=== PATIENT | female | born 1985 | race Caucasian/White ===

== ENCOUNTER 2022-03-07 18:23 | Outpatient (CLI) | payer OTHER, SELFPAY ==
[2022-03-07 21:01] LABS: Cholesterol* 197 mg/dL (90-199); Glucose* 80 mg/dL (60-115)
[2022-03-07 21:02] LABS: HDL Cholesterol* 68 mg/dL (>=50); LDL Cholesterol Calculated 108 mg/dL (<100); Triglycerides* 104 mg/dL (40-149)
[2022-03-07 21:20] LABS: Vitamin D 25 Hydroxy* 26 ng/mL (30-80)
== END 2022-03-07 18:24 | disposition home or self-care (01) ==
PROVIDERS: Visit Provider Registered Nurse
DX: Z01.419 Encounter for gynecological examination (general) (routine) without abnormal findings (principal); R53.83 Other fatigue; Z13.1 Encounter for screening for diabetes mellitus; Z13.6 Encounter for screening for cardiovascular disorders; Z13.21 Encounter for screening for nutritional disorder
CPT/HCPCS: 80061; 82306; 82947; 84443

== ENCOUNTER 2022-07-26 08:10 | Outpatient (CLI) | payer OTHER, SELFPAY | END 2022-07-26 08:11 | disposition home or self-care (01) | PROVIDERS: Visit Provider Registered Nurse | DX: E55.9 Vitamin D deficiency, unspecified (principal) | CPT/HCPCS: 82306 ==

== ENCOUNTER 2022-10-10 16:50 | Outpatient (CLI) | payer OTHER, SELFPAY ==
--- NOTE | 2022-10-10 17:00 | CRLHL7_ITS ---
For Patients: As a result of the Century Cures Act, medical imaging exams and procedure reports are released immediately into your electronic medical record. You may view this report before your referring provider. If you have questions, please contact your health care provider. INDICATION: Menorrhagia. TECHNIQUE: Transabdominal and transvaginal pelvic ultrasound. FINDINGS: The uterus measures 9.8 x 4.0 x 5.1 cm. The endometrial stripe measures 9 mm transvaginally. Few small cervical nabothian cysts. Normal-sized ovaries without torsion or mass. Small ovarian follicles. The right ovary measures 3.8 x 2.8 x 3.3 cm. The left ovary measures 3.9 x 2.2 x 2.9 cm. Blood flow is identified in the ovaries. No free pelvic fluid. IMPRESSION: Normal transabdominal and transvaginal pelvic ultrasound. Dictated by Yoandy Estrella MD @ 10/11/2022 6:15:55 AM (Electronically Signed)
== END 2022-10-10 16:51 | disposition home or self-care (01) ==
LOC: US 16:51
PROVIDERS: Visit Provider Obstetrics & Gynecology
DX: N92.0 Excessive and frequent menstruation with regular cycle (principal)
CPT/HCPCS: 76830; 76856

== ENCOUNTER 2022-12-14 06:50 | Day surgery (SDC) | payer OTHER, SELFPAY ==
[2022-12-14] VITALS (29 sets, daily range): BP systolic 104–137; BP diastolic 60–95; PULSE 54–105; RESP 12–20; TEMP 36.2–37.1; O2SAT 94–99; BMI 32.8
[2022-12-14] MEDS: LACTATED RINGERS 1000 ML 1,000 ML 100 ML IV ×2 (06:00→10:15)
--- NOTE | 2022-12-14 07:17 | SUR.PREOP ---
lab here for hgb type and screen [facility] [place]
[2022-12-14 07:21] LABS: Hemoglobin* 13.6 gm/dL (12.0-16.0)
[2022-12-14 07:25] LABS: Ur HCG Qualitative* Negative (Negative)
[2022-12-14] MEDS: SODIUM CHLORIDE 0.9 % (FLUSH) 10 ML SYRINGE IVF ×2 (07:26→20:18)
[2022-12-14 07:37] LABS: Creatinine* 0.6 mg/dL (0.5-1.5); Est. Creatinine Clearance* 119.01; Estimated Glomerular Filt Rate 118 ml/min
--- NOTE | 2022-12-14 07:38 | W.PM.H&PU ---
History & Physical Update History & Physical Update H&P Reviewed and patient assessed: No changes noted H&P Updates: Preoperative diagnosis: Menorrhagia with regular cycle, succinylcholine adverse reaction Planned procedures: Total vaginal hysterectomy with bilateral salpingectomy, cystoscopy Physical exam: General: No acute distress Psych: Alert and oriented x3, full affect HEENT: Normocephalic, atraumatic Heart: Regular rate and rhythm, no murmur rub or gallop Lungs: Clear to auscultation bilaterally
--- NOTE | 2022-12-14 07:57 | W.ANESCHARGE ---
Anesthesia Charges Start Date/Time Anesthesia Start Date: 12/14/22 Anesthesia Start Time: 09:02 Stop Date/Time Anesthesia Stop Date: 12/14/22 Anesthesia Stop Time: 11:39
[2022-12-14] MEDS: CEFAZOLIN 2 GM INJ IVP (09:35)
[2022-12-14] MEDS: 0.9 % SODIUM CHLORIDE 50 ml INJECTION (09:45)
[2022-12-14] MEDS: VASOPRESSIN 20 UNIT/ML INJ INJECTION (09:45)
[2022-12-14] MEDS: BACITRACIN OINTMENT BULK TUBE 1 APPLIC TOPICAL (11:18)
--- NOTE | 2022-12-14 12:05 | W.PM.GYNPROC ---
Procedure Note Date of procedure: 12/14/22 Pre-op diagnosis: 1. Menorrhagia with regular cycle, 2. Vulvitis Post-op diagnosis: other (Bilateral hydrosalpinges, 2.5 cm hemorrhagic left ovarian cyst. Otherwise as above. ) Procedure: Total vaginal hysterectomy, bilateral salpingectomy, left ovarian cystectomy Cystoscopy Vulvar biopsy Anesthesia: MAC and spinal Complications: None Surgeon: Mona John MD Public Housing Interviewer: Ashely Valentin Estimated blood loss (mL): 25 IV fluids (mL): 1,750 Urine Output (mL): 400 Pathology: specimen obtained, sent to pathology (1. Uterus, 2. left ovarian cyst, 3. Left hydrosalpinx, 4. Right hydrosalpinx, 5. Vulvar biopsy (discussed / reviewed with circulating nurse)) Condition: stable Disposition: floor Findings: 1. Upon pelvic exam under anesthesia, the cervix and vagina were normal in appearance. Uterus was mobile and anteverted, of normal size and texture. There were no palpable adnexal masses. There was slight partial phimosis of clitoral king. The texture of the vulvar skin was difficult to discern after prep, but there was some thickened, whitened appearance of the vulvar skin with a superficial fissure in the midline perineum. 2. Uterus was normal in appearance with a weight of 106 g. There were bilateral hydrosalpinges noted. The right to was adherent to the right ovary and the right pelvic sidewall and the fimbriated edge was not definitively visualized; I suspect the anatomy had been distorted while encased in adhesions. Left ovary had one follicle and 1 small hemorrhagic cyst, the latter of which was removed. The right ovary, other than the adhesions from the right hydrosalpinx, was normal in appearance. Procedure Description: Patient was taken to the operating room with IV running. Spinal anesthesia was administered. She received cefazolin in preoperative prophylaxis. She was positioned in dorsal lithotomy position with her legs in candy-cane stirrups. Exam under anesthesia was performed for the above noted findings. Hoffmann catheter was inserted. Weighted speculum was inserted. Cervix was grasped along its anterior and posterior lips with thyroid Chadwick clamps. The cervical vaginal junction was circumferentially infiltrated with dilute vasopressin. The cervical vaginal junction was then incised circumferentially with scalpel. The vaginal epithelium was dissected bluntly off bilateral uterosacral ligaments. Anterior colpotomy was performed sharply, and a [place] retractor was placed between the bladder and the uterus. The posterior colpotomy was performed sharply, and a long weighted speculum was placed in the cul-de-sac. Bilateral uterosacral ligaments were clamped, cut, suture ligated with 0 Vicryl, and tagged for later identification. The cardinal ligaments were serially clamped, cut, and suture ligated bilaterally with 0 Vicryl. Finally, the remnants of the broad ligament were clamped, coagulated with LigaSure Impact device, and divided, ultimately freeing the uterus from its attachments to the pelvis. The uterus was delivered through the vagina. The left adnexa were examined with findings as noted above. An attempt to grasp the ovary with a [place] resulted in rupture of the small hemorrhagic cyst. The remnants of the cyst wall were peeled away from the surrounding ovary and sent to pathology. The bed of the cyst was coagulated with Bovie and then oversewn with chromic. The pedicle of the left broad ligament was bleeding, and this was addressed with cautery from LigaSure Impact device. The dilated fallopian tube was divided from the investing mesosalpinx and transected with the use of the LigaSure Impact device. Hemostasis of the pedicles was noted. The right adnexa were then examined with findings as noted above. The proximal portion of the right tube was grasped with Shira clamps, and the investing adhesions were painstakingly dissected away from the ovary with the use of Bovie. Once the distal portion of the tube was reached, I was unable to identify the fimbriated edge, and the tube appeared to be adherent to the pelvic sidewall. The tube was then coagulated and transected at this point with the Impact device. The bed the dissection along the ovary was coagulated with Bovie. Hemostasis was noted. The vaginal cuff was examined, and the lateral edges required some [id number] sutures to obtain hemostasis. Otherwise, the pedicles appeared hemostatic and the tagged sutures on the cardinal ligaments were cut. The angles of the vaginal cuff were closed with a stitch of 0 Vicryl, incorporating the distal most aspect of the uterosacral pedicle into the closure. The intervening vaginal cuff was closed with a series of [id number] sutures of 0 Vicryl. Hemostasis was noted. All instruments were removed from the vagina. Hoffmann catheter was removed from the patient's bladder. Patient was administered IV methylene blue to aid in visualization of ureteral jets. Cystoscopy was performed, revealing bilateral ureteral jets and no injury to the bladder. The cystoscope was removed and the Hoffmann catheter replaced. The anterior perineum at the site of the shallow fissure was selected as a biopsy site. A 4 mm punch biopsy was performed, amputated sharply, and sent to pathology. Hemostasis was achieved with Bovie electric cautery. Triple antibiotic ointment was applied above this. The skin beneath was injected with a small amount of 1% lidocaine. Patient tolerated procedure well and was taken to recovery area in stable condition.
--- NOTE | 2022-12-14 12:10 | W.ANESCHARGE ---
Anesthesia Charges Start Date/Time Anesthesia Start Date: 12/14/22 Anesthesia Start Time: 09:02 Stop Date/Time Anesthesia Stop Date: 12/14/22 Anesthesia Stop Time: 11:39
[2022-12-14] MEDS: MORPHINE 2 MG/ML inj IVP (13:51)
[2022-12-14] MEDS: LACTATED RINGERS 1000 ML 1,000 ML 125 ML IV (14:41)
[2022-12-14] MEDS: ACETAMINOPHEN 325 MG TABLET 650 MG PO ×3 (14:59→22:54)
[2022-12-14] MEDS: OXYCODONE 5 MG TABLET PO ×3 (14:59→22:54)
[2022-12-14] MEDS: KETOROLAC 30 MG/ML inj IVP (18:37)
--- NOTE | 2022-12-14 20:06 | PC.NURSE ---
Patient arrive to med/surg at 1215. She rated her pain 4/10 at that time. Approximately an hour later she reported pain in pelvis rated 6/10 describing it as menstrual-like pain and tightening. Patient had received duramorph in OR. Dr John updated of increased pain. New orders given to start narcotic pain meds prior to 12 hour fabiola. PRN Morphine given with minimal relief. PRN Oxycodone and PRN Tylenol was then given and decreased her pain to 3/10. Tolerating regular diet. Scant bloody vaginal drainage on pad. Adequate intake and urine output from ashraf catheter. Up to recliner and ambulated with in hallway this evening.
[2022-12-14] MEDS: diphenhydrAMINE 50 MG/ML inj 12.5 MG IVP (20:18)
[2022-12-15] VITALS (7 sets, daily range): BP systolic 107; BP diastolic 74; PULSE 69; RESP 16; TEMP 36.8; O2SAT 95–100
[2022-12-15] MEDS: KETOROLAC 30 MG/ML inj IVP (00:30)
[2022-12-15] MEDS: SODIUM CHLORIDE 0.9 % (FLUSH) 10 ML SYRINGE IVF (00:30)
[2022-12-15] MEDS: ACETAMINOPHEN 325 MG TABLET 650 MG PO ×2 (04:19→08:23)
[2022-12-15] MEDS: OXYCODONE 5 MG TABLET PO ×2 (04:19→08:24)
--- NOTE | 2022-12-15 05:40 | PC.NURSE ---
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 minimal vaginal bleeding noted. ashraf currently in place, light blue urine output, will remove shortly per orders. pt tolerating PO intake, no N/V. Ice to lower abdomen for comfort.
[2022-12-15 06:30] LABS: Hemoglobin* 12.9 gm/dL (12.0-16.0)
[2022-12-15 07:00] LABS: Creatinine* 0.6 mg/dL (0.5-1.5); Est. Creatinine Clearance* 119.01; Estimated Glomerular Filt Rate 118 ml/min
--- NOTE | 2022-12-15 15:53 | PC.NURSE ---
Pt discharged @ ~1045. VSS, RA. Pain score of 5 in lower abdomen- relief w/ PRN 5 mg oxy & tylenol + ice. Tolerating regular diet, ate 75% of breakfast. Voided x1. No BM yet, pt educated on importance of stool softeners when taking narcotics. Showered. PIV removed, catheter intact. Pt discharged w/ spouse, RN walked pt to car in w/c w/ all belongings. Laura Colbert RN
== END 2022-12-15 10:45 | disposition home or self-care (01) ==
LOC: OR 06:51 → MEDSURG 07:39
PROVIDERS: PCP Family Medicine; Visit Provider Obstetrics & Gynecology
PROC: (CPT 58262; principal; 2022-12-14 08:15)
DX: N92.0 Excessive and frequent menstruation with regular cycle (principal); N76.2 Acute vulvitis; N70.11 Chronic salpingitis; N83.202 Unspecified ovarian cyst, left side
CPT/HCPCS: 58262; 58925; 56605; 00944; 36415; 81025; 82565; 85018; 86850; 86900; 86901; 88305; 88307; 88312; Q9968; A9270; J0690; J1100; J1200; J1885; J2250; J2270; J2274; J2405; J3010; J7120

== ENCOUNTER 2023-01-26 14:54 | Outpatient (CLI) | payer OTHER, SELFPAY ==
[2023-01-29 14:43] LABS: HSV 1 Subtype by PCR Not Detected; HSV 2 Subtype by PCR Not Detected; Herpes Simplex Subtype Source Not Provided
== END 2023-01-26 14:55 | disposition home or self-care (01) ==
PROVIDERS: PCP Family Medicine; Visit Provider Obstetrics & Gynecology
DX: Z11.3 Encounter for screening for infections with a predominantly sexual mode of transmission (principal); Z11.59 Encounter for screening for other viral diseases
CPT/HCPCS: 86592; 86703; 86706; 86803; 87252; 87340; 87491; 87529; 87591